=== PATIENT | female | born 1985 | race African-American/Black ===

== ENCOUNTER 2018-03-01 13:19 | Emergency (ER) | payer OTHER ==
[~2018-03-01] VITALS: Ht 152.4 cm; Wt 59.1 kg
[~2018-03-01 13:19] MED LIST: DOXYCYCL HYC100 MG PO; FLAGYL500 MG PO; MACROBID100 MG OR; TORADOL OR; [UNRECOGNIZED DRUG - REMARK]
[2018-03-01] MEDS ORDERED: AMOXICILLIN500 MG PO (14:49)
[2018-03-01 14:50] VITALS: BP 116/79
[2018-03-01] MEDS ORDERED: BENADRYL 50MG C50 MG PO (14:56)
[2018-03-01] MEDS ORDERED: BENADRY2 EX (14:56)
== END 2018-03-01 14:58 | disposition home or self-care (01) | DRG 153 ==
LOC: ED 13:19
DX: J02.9 Acute pharyngitis, unspecified (principal); I88.9 Nonspecific lymphadenitis, unspecified; F17.290 Nicotine dependence, other tobacco product, uncomplicated

== ENCOUNTER 2018-03-09 11:32 | Emergency (ER) | payer OTHER ==
[~2018-03-09] VITALS: Ht 152.4 cm; Wt 60.0 kg
[~2018-03-09 11:32] MED LIST changes: +AMOXICILLIN500 MG PO; +BENADRY2 EX; +BENADRYL 50MG C50 MG PO
[2018-03-09] MEDS ORDERED: ZITHROMAX500 MG PO (11:54)
[2018-03-09] MEDS ORDERED: TESSALON PER100 MG PO (11:54)
[2018-03-09 12:00] VITALS: BP 125/72
== END 2018-03-09 12:00 | disposition home or self-care (01) | DRG 153 ==
LOC: ED 11:32
DX: J06.9 Acute upper respiratory infection, unspecified (principal); H66.93 Otitis media, unspecified, bilateral; F17.210 Nicotine dependence, cigarettes, uncomplicated

== ENCOUNTER 2018-07-02 12:03 | Emergency (ER) | payer SELFPAY ==
[~2018-07-02] VITALS: Ht 152.4 cm; Wt 50.1 kg
[~2018-07-02 12:03] MED LIST changes: +TESSALON PER100 MG PO; +ZITHROMAX500 MG PO
[2018-07-02 13:35] LABS: INFLUENZA A NONE DETECTED (NONE DETECT); INFLUENZA B NONE DETECTED (NONE DETECT)
[2018-07-02] MEDS ORDERED: ZPAK PO (13:39)
[2018-07-02 13:50] VITALS: BP 115/62
== END 2018-07-02 13:50 | disposition home or self-care (01) | DRG 153 ==
LOC: ED 12:03
PROVIDERS: Family Medicine
DX: J06.9 Acute upper respiratory infection, unspecified (principal); R05 Cough; R09.81 Nasal congestion; R09.89 Other specified symptoms and signs involving the circulatory and respiratory systems

== ENCOUNTER 2022-10-20 13:06 | Emergency (ER) | payer MEDICAID ==
[~2022-10-20] VITALS: Ht 152.4 cm; Wt 59.9 kg
[~2022-10-20 13:06] MED LIST changes: +ZPAK PO
[2022-10-20 14:22] VITALS: BP 134/80
== END 2022-10-20 14:54 | disposition home or self-care (01) ==
LOC: ED 13:06
DX: M25.511 Pain in right shoulder (principal); F17.200 Nicotine dependence, unspecified, uncomplicated

== ENCOUNTER 2023-01-14 19:54 | Emergency (ER) | payer BC ==
[~2023-01-14] VITALS: Ht 152.4 cm; Wt 61.0 kg
[2023-01-14] MEDS ORDERED: ADDERALL10 MG PO (20:09)
[2023-01-14] MEDS ORDERED: LEVOTHYROXIN50 MCG PO (20:09)
[2023-01-14] MEDS ORDERED: SILVADENE1 % EX (21:28)
[2023-01-14] MEDS ORDERED: IBUPROFEN600 MG PO (21:28)
[2023-01-14 21:37] VITALS: BP 141/89
== END 2023-01-14 21:41 | disposition home or self-care (01) | DRG 935 ==
LOC: ED 19:54
PROC: 2W2FX4Z Dressing of Left Hand using Bandage (ICD-10-PCS; principal; 2023-01-14)
PROC: 2W2PX4Z Dressing of Left Upper Leg using Bandage (ICD-10-PCS; 2023-01-14)
DX: T24.112A Burn of first degree of left thigh, initial encounter (principal); T23.102A Burn of first degree of left hand, unspecified site, initial encounter; E03.9 Hypothyroidism, unspecified; F17.200 Nicotine dependence, unspecified, uncomplicated; X12.XXXA Contact with other hot fluids, initial encounter; Y92.000 Kitchen of unspecified non-institutional (private) residence as the place of occurrence of the external cause

== ENCOUNTER 2023-04-18 11:13 | Emergency (ER) | payer OTHER, BC ==
[~2023-04-18] VITALS: Ht 152.4 cm; Wt 61.2 kg
[~2023-04-18 11:13] MED LIST changes: +ADDERALL10 MG PO; +IBUPROFEN600 MG PO; +LEVOTHYROXIN50 MCG PO; +SILVADENE1 % EX
[2023-04-18 11:57] LABS: BASO% 0.6 % (0-3); HEMATOCRIT 38.7 % (37.0-47.0); HEMOGLOBIN 12.3 g/dl (12.0-16.0); IMMATURE GRANULOCYTES 0.2 % (0.0-5.0); LYMPH% 15.3 % (15-41); MEAN CELL VOLUME 83.8 fL CALC (80.0-100.0); MEAN CORPUSCULAR HGB 26.6 pG CALC (26.0-32.0); MEAN CORPUSCULAR HGB CONC 31.8 g/dL CAL (32.0-36.0); MONO% 5.6 % (2-13); NEUT# 7.68 thou/uL (2.00-7.15); NEUT% 77.3 % (42-76); RED BLOOD COUNT 4.62 mill/uL (4.20-5.60); RED CELL DISTRI WIDTH 13.8 % (11.5-15.5)
[2023-04-18 12:00] LABS: URINE BILIRUBIN - DIPSTICK Negative (NEGATIVE); URINE BLOOD DIPSTICK Negative (NEGATIVE); URINE CLARITY Clear; URINE COLOR Yellow; URINE GLUCOSE - DIPSTICK Negative (NEGATIVE); URINE KETONE Negative (NEGATIVE); URINE LEUK ESTERASE Negative (Negative); URINE NITRITE - DIPSTICK Negative (Negative); URINE PH 6.5 (4.5-8.0); URINE PROTEIN - DIPSTICK Negative (NEG-TRACE); URINE UROBILINOGEN - DIPSTICK 0.2 E.U./dL (0.2)
[2023-04-18 12:12] LABS: ALBUMIN 4.1 g/dL (3.2-5.0); ANION GAP 13 (6-22 (CALC)); BILIRUBIN, TOTAL 1.1 mg/dL (0.02-1.3); BUN 6 mg/dL (7-17); BUN/CREATININE RATIO 8 (12-20 (CALC)); CARBON DIOXIDE 22 mmol/l (22-30); CHLORIDE 109 mmol/l (95-108); CREATININE 0.8 mg/dL (0.5-1.0); GFR FOR AFR.AMER. > 60 ML/MIN (>=60 (CALC)); GFR OTHER RACES > 60 ML/MIN (>=60 (CALC)); POTASSIUM 4.1 mmol/l (3.5-5.1); SODIUM 139 mmol/l (137-146); TOTAL PROTEIN 6.9 g/dL (6.3-8.2)
[2023-04-18 12:14] LABS: ALKALINE PHOSPHATASE 87 u/l (38-126); SGOT/AST 28 u/l (14-36)
[2023-04-18] MEDS ORDERED: METHOCARBAMOL500 MG PO (13:34)
[2023-04-18] MEDS ORDERED: NAPROXEN500 MG PO (13:34)
[2023-04-18 13:45] VITALS: BP 116/77
== END 2023-04-18 13:48 | disposition home or self-care (01) | DRG 605 ==
LOC: ED 11:13
PROVIDERS: Nurse Practitioner
DX: S00.83XA Contusion of other part of head, initial encounter (principal); M79.652 Pain in left thigh; R10.32 Left lower quadrant pain; E03.9 Hypothyroidism, unspecified; F17.200 Nicotine dependence, unspecified, uncomplicated; V49.40XA Driver injured in collision with unspecified motor vehicles in traffic accident, initial encounter
CPT/HCPCS: Q9967

== ENCOUNTER → 2024-03-12 | Emergency (ER) | payer OTHER, BC ==
[~2024-03-12] MED LIST changes: +METHOCARBAMOL500 MG PO; +NAPROXEN500 MG PO
== END | disposition home or self-care (01) | DRG 951 ==
LOC: LWOBS 14:24
DX: Z53.21 Procedure and treatment not carried out due to patient leaving prior to being seen by health care provider (principal)

== ENCOUNTER 2024-07-04 14:14 | Emergency (ER) | payer OTHER, BC ==
[~2024-07-04] VITALS: Ht 152.4 cm; Wt 63.0 kg
[2024-07-04 15:21] VITALS: BP 130/77
[2024-07-04 15:30] VITALS: BP 113/67
[2024-07-04] MEDS ORDERED: METHOCARBAMOL 500 MG/TAB PO ONE (15:45)
[2024-07-04] MEDS ORDERED: IBUPROFEN 600 MG/TAB PO ONE (15:45)
[2024-07-04] MEDS ORDERED: LIDOCAINE HCL EX ONE (15:50)
[2024-07-04] MEDS ORDERED: [UNRECOGNIZED DRUG - OTHER] EX ONE (15:50)
[2024-07-04] MEDS ORDERED: LIDOCAINE 2% (20 MG/ML) MDV NB ONE (15:55)
[2024-07-04 16:00] VITALS: BP 124/67
[2024-07-04] MEDS ORDERED: LIDOCAINE HCL 2 % JELLY TOP ONE (16:30)
[2024-07-04 16:34] VITALS: BP 110/69
[2024-07-04] MEDS ORDERED: ACETAMINOPHEN 325 MG/TAB PO ONE (16:35)
[2024-07-04 17:26] VITALS: BP 110/69
[2024-07-04] MEDS ORDERED: METHOCARBAMOL500 MG PO (17:28)
== END 2024-07-04 17:32 | disposition home or self-care (01) | DRG 605 ==
LOC: ED 14:14
DX: S80.11XA Contusion of right lower leg, initial encounter (principal); S60.512A Abrasion of left hand, initial encounter; S16.1XXA Strain of muscle, fascia and tendon at neck level, initial encounter; E03.9 Hypothyroidism, unspecified; V43.52XA Car driver injured in collision with other type car in traffic accident, initial encounter